=== PATIENT | female | born 1955 | race Hispanic/Latino ===

== ENCOUNTER 2017-09-04 06:42 | Emergency (ER) | payer OTHER ==
[2017-09-04 06:52] VITALS: BMI 29.7
[2017-09-04 06:55] VITALS: RESP 18; TEMP 98.1
--- NOTE | 2017-09-04 07:22 | ED PDOC ---
Arrival/HPI - General Chief Complaint: ENT Problem Time Seen by Provider: 09/04/17 07:10 Historian: Patient - History of Present Illness Narrative History of Present Illness (Text): 09/04/17 07:19 pt p/w + < 1 day onset of left ear aches, + mild sore throat, + post-nasal drip sensation; pt felt mild headaches, no fever/chills/sweats, no coughing/runny nose, no cp/sob/palpitations, no abd pain, no n/v, no numbness/tingling, no urinary/bowel changes, no dizziness, no vision changes, no LOC, no neck pain, no gross bleeding, no fall/trauma/sick contact, no travel; pt denied other complaints; pt is here for further eval. PCP: Dr Tobin Time/Duration: Prior to Arrival Symptom Onset: Sudden Symptom Course: Unchanged Activities at Onset: Rest Context: Home Past Medical History - Provider Review Nursing Documentation Reviewed: Yes - Travel History Have you recently traveled outside [place] w/in the past 3 mons?: No - Past History Past History: Non-Contributing - Infectious Disease Hx of Infectious Diseases: None - Tetanus Immunization Tetanus Immunization: Unknown - Reproductive Menopause: Yes Currently : No - Cardiac Hx Hypertension: Yes - Musculoskeletal/Rheumatological Hx Falls: No - Psychiatric Hx Depression: No Hx Emotional Abuse: No Hx Physical Abuse: No Hx Substance Use: No - Past Surgical History Past Surgical History: Non-Contributing - Suicidal Assessment Feels Threatened In Home Enviroment: No Family/Social History - Physician Review Nursing Documentation Reviewed: Yes Family/Social History: No Known Family HX Smoking Status: no Hx Alcohol Use: No Hx Substance Use: No Hx Substance Use Treatment: No Allergies/Home Meds Allergies/Adverse Reactions: Allergies Penicillins Allergy (Verified 09/04/17 06:55) RASH Home Medications: Home Meds Medication Instructions Recorded Confirmed Amlodipine Besylate/Benazepr 1 cap PO DAILY 03/12/12 03/22/14 [Lotrel 10 mg-20 mg] Atenolol [Atenolol] 25 mg PO QPM 03/22/14 03/22/14 Hydrochlorothiazide [HCTZ] 25 mg PO DAILY 03/22/14 03/22/14 Metformin Hydrochloride [Metformin] 500 mg PO BID 03/22/14 03/22/14 Rosuvastatin Calcium [Crestor] 5 mg PO DAILY 03/22/14 03/22/14 Review of Systems - Review of Systems Constitutional: Normal Eyes: Normal ENT: Sore Throat, Other (left ear pain). absent: Hearing Changes, Rhinorrhea Respiratory: Normal. absent: SOB, Cough Cardiovascular: Normal. absent: Chest Pain, Orthopnea, Syncope Gastrointestinal: Normal. absent: Abdominal Pain, Nausea, Vomiting Genitourinary Female: Normal Musculoskeletal: Normal. absent: Back Pain Skin: Normal Neurological: Normal. absent: Headache, Dizziness Endocrine: Normal Hemo/Lymphatic: Normal Psychiatric: Normal Physical Exam - Physical Exam Narrative Physical Exam (Text): 09/04/17 07:30 General: alert/awake, GCS = 15, oriented x 3, resting in bed, + comfortable, cooperative, interactive; NAD Head: NC/AT EYE: PERRLA, EOMI, sclera anicteric, no nystagmus, no photophobia; wearing eyeglasses; visual field intact b/l Facial: WNL ENT: right TM intact, clear/Non-bulging/non-erythematous; left TM, noted lower quad (6-9 oclock) with bulging, air/fluid level noted; + erythema surrounding the TM, + mild tenderness noted on exam; no gross discharge/bleeding, no FB/ masses/lesions noted Oral: uvula/tongue are midline, no exudate/lesions, no drooling/stridor, no dysphonia; intact dentitions NECK: intact ROM, no midline tenderness, no nuchal rigidity, no meningeal signs ; no step off Chest: CTA b/l, no w/r/r; no tachypenia, no accessory muscle use noted Chest Wall: no focal tenderness, no gross deformities, no crepitus, no lesions/ rashes noted Cardiac: +S1, +S2, no m/r/r, no tachycardia Abdominal: +BS, soft/nd/nt, well nourished patient; no masses/rebound/guarding/ rigidity; no andrew's sign, no mcburney's point tenderness Extremities: intact ROM, strength 5/5 grossly intact in all limbs, neurovasc intact b/l; + ambulatory; reflex +2/2 BACK: no step off, no midline tenderness, NO crepitus, no gross deformities noted; Intact ROM SKIN: cap refill < 1 sec, no ulcerations, no petechiae, no rashes NEURO: CNII-XII WNL, no facial asymmetries, no slurr speech, oriented x 3 NIH stroke scale ~ 0 Psych: normal insight, normal affect; follows command with ease Vital Signs Reviewed: Yes Vital Signs Temp Pulse Resp BP Pulse Ox 09/04/17 06:52 98.1 F 78 18 138/70 97 Temperature: Afebrile Blood Pressure: Normal Pulse: Regular Respiratory Rate: Normal Appearance: Positive for: Well-Appearing, Non-Toxic. No: Ill-Appearing, Unkept , Uncomfortable Pain Distress: None Mental Status: Positive for: Alert and Oriented X 3 - Systems Exam Head: Present: Atraumatic, Normocephalic Medical Decision Making ED Course and Treatment: 09/04/17 07:20 Impression: left ear aches/sore throat? i have consider all the differential diagnosis regarding pt's chief medical complaints/clinical findings, including but are not limited to: left otitis media A/P: left ear aches - supportive care - observe/reevaluation Re-evaluation Time: 07:45 Reassessment Condition: Unchanged - Medication Orders Current Medication Orders: Discontinued Medications Clindamycin HCl (Cleocin) 300 mg PO STAT STA PRN Reason: Protocol Stop: 09/04/17 07:18 Disposition/Present on Arrival - Present on Arrival Any Indicators Present on Arrival: No History of DVT/PE: No History of Uncontrolled Diabetes: No Urinary Catheter: No History of Decub. Ulcer: No History Surgical Site Infection Following: None - Disposition Have Diagnosis and Disposition been Completed?: Yes Diagnosis: Left otitis media, Nasal congestion Disposition: HOME/ ROUTINE Disposition Time: 07:22 Patient Plan: Discharge Patient Problems: Current Active Problems Problem Status Onset Left otitis media Acute Nasal congestion Acute Condition: STABLE Discharge Instructions (ExitCare): Ear Infections (Otitis Media) Print Language: GREENLANDIC Additional Instructions: Make sure to see your doctor in 1-2 days DRINK PLENTY OF FLUIDS take your medications as prescribed DONT SWIM AVOID getting water into your left ear RETURN TO ED IF worse pain, cant breath, persistent vomiting, high fever >101- 102 for hours, altered behavior, slurr speech, facial changes, focal weakness ( arm/leg or both), unable to urinate, heavy/persistent bleeding, passing out, chest pain, or other medical emergencies Prescriptions: Clindamycin [Cleocin] 300 mg PO TID #20 cap Ibuprofen [Motrin] 400 mg PO QID PRN #30 tab PRN Reason: Pain, Mild (1-3) Ofloxacin Otic 0.3% [Floxin 0.3% Otic Soln] 10 drop OS BID 7 Days #1 bottle Referrals: Jaime Tobin MD [Family Provider] - Follow up with primary Pranav Trevizo DO [[facility]] - Follow up with primary [facility] [Outside] - Follow up with primary [facility] [Outside] - Follow up with primary [facility] [Outside] - Follow up with primary Forms: [employer] ([place]an)
[2017-09-04 08:04] VITALS: BP 131/69; PULSE 80; O2SAT 99
== END 2017-09-04 07:52 | disposition home or self-care (01) ==
LOC: ED 06:42
DX: H66.92 Otitis media, unspecified, left ear (principal); R09.81 Nasal congestion

== ENCOUNTER 2017-09-11 00:40 | Emergency (ER) | payer OTHER ==
[2017-09-11 00:41] VITALS: BMI 29.7
[2017-09-11 01:02] VITALS: RESP 18; TEMP 98.2
--- NOTE | 2017-09-11 01:08 | ED PDOC ---
Arrival/HPI - General Chief Complaint: Allergic Reaction Time Seen by Provider: 09/11/17 01:04 Historian: Patient - History of Present Illness Narrative History of Present Illness (Text): 09/11/17 01:07 A 62 year old female, who presents to the emergency department for further evaluation of an itchy rash to the face, chest, and arms. The patient states that she just finished a prescription of Clindamycin antibiotics for which she was being treated for an ear infection. The patient thinks that she may have been allergic to antibiotic, but is not sure. She denies SOB and complains of itchiness to the rash. She also notes that she has a slight cough and is requesting Z-pack antibiotics for her symptoms. she notes that she has taken it in the past with no problem. The patient denies fevers, chills, headache, dizziness, chest pain, shortness of breath, dyspnea on exertion, abdominal pain , nausea, vomiting, diarrhea, back pain, neck pain, urinary/bowel changes, or any other complaint. Time/Duration: Prior to Arrival Symptom Onset: Sudden Symptom Course: Unchanged Activities at Onset: Rest, Light Context: Home Past Medical History - Provider Review Nursing Documentation Reviewed: Yes - Past History Past History: Non-Contributing - Infectious Disease Hx of Infectious Diseases: None - Tetanus Immunization Tetanus Immunization: Unknown - Cardiac Hx Hypertension: Yes - Musculoskeletal/Rheumatological Hx Falls: No - Psychiatric Hx Depression: No Hx Emotional Abuse: No Hx Physical Abuse: No Hx Substance Use: No - Past Surgical History Past Surgical History: Non-Contributing - Anesthesia Hx Anesthesia: No - Suicidal Assessment Feels Threatened In Home Enviroment: No Family/Social History - Physician Review Nursing Documentation Reviewed: Yes Family/Social History: No Known Family HX Smoking Status: Never Smoked Hx Alcohol Use: No Hx Substance Use: No Hx Substance Use Treatment: No Allergies/Home Meds Allergies/Adverse Reactions: Allergies Penicillins Allergy (Verified 09/04/17 06:55) RASH Home Medications: Home Meds Medication Instructions Recorded Confirmed Atenolol [Atenolol] 25 mg PO QPM 03/22/14 09/11/17 Hydrochlorothiazide [HCTZ] 25 mg PO DAILY 03/22/14 09/11/17 Review of Systems - Physician Review All systems were reviewed & negative as marked: Yes - Review of Systems Constitutional: absent: Fevers, Night Sweats Respiratory: Cough. absent: SOB Cardiovascular: absent: Chest Pain, MICHEL Gastrointestinal: absent: Abdominal Pain, Stool Changes, Diarrhea, Nausea, Vomiting Genitourinary Female: absent: Urine Output Changes Musculoskeletal: absent: Back Pain, Neck Pain Skin: Rash Neurological: absent: Headache, Dizziness Physical Exam Vital Signs Reviewed: Yes Vital Signs Temp Pulse Resp BP Pulse Ox 09/11/17 01:25 84 18 117/81 98 09/11/17 01:01 98.2 F 90 18 143/103 H 96 Temperature: Afebrile Blood Pressure: Hypertensive Pulse: Regular Respiratory Rate: Normal Appearance: Positive for: Well-Appearing, Non-Toxic, Comfortable Pain Distress: None Mental Status: Positive for: Alert and Oriented X 3 - Systems Exam Head: Present: Atraumatic, Normocephalic Pupils: Present: PERRL Extroacular Muscles: Present: EOMI Conjunctiva: Present: Normal Mouth: Present: Moist Mucous Membranes Neck: Present: Normal Range of Motion Respiratory/Chest: Present: Clear to Auscultation, Good Air Exchange. No: Respiratory Distress, Accessory Muscle Use Cardiovascular: Present: Regular Rate and Rhythm, Normal S1, S2. No: Murmurs Abdomen: No: Tenderness, Distention, Peritoneal Signs Back: Present: Normal Inspection Upper Extremity: Present: Normal Inspection. No: Cyanosis, Edema Lower Extremity: Present: Normal Inspection. No: Edema Neurological: Present: GCS=15, CN II-XII Intact, Speech Normal Skin: Present: Warm, Dry, Rashes (Diffusely scattered areas of urticaria to the face, arms, and chest.) Psychiatric: Present: Alert, Oriented x 3, Normal Insight, Normal Concentration Medical Decision Making ED Course and Treatment: 09/11/17 01:16 Impression: A 62 year old female presents to the emergency department for further evaluation of a rash to the face, chest, and arms. Plan: -- Benadryl and predniSONE -- Reassess and disposition Progress Notes: - Medication Orders Current Medication Orders: Discontinued Medications Diphenhydramine HCl (Benadryl) 50 mg PO ONCE STA Stop: 09/11/17 01:07 Last Admin: 09/11/17 01:18 Dose: 50 mg Prednisone (Prednisone Tab) 60 mg PO ONCE STA Stop: 09/11/17 01:07 Last Admin: 09/11/17 01:20 Dose: 60 mg - Scribe Statement The provider has reviewed the documentation as recorded by the Ronibe Jennifer Rodarte Provider Ronibe Attestation: All medical record entries made by the Scribe were at my direction and personally dictated by me. I have reviewed the chart and agree that the record accurately reflects my personal performance of the history, physical exam, medical decision making, and the department course for this patient. I have also personally directed, reviewed, and agree with the discharge instructions and disposition. Disposition/Present on Arrival - Present on Arrival Any Indicators Present on Arrival: No History of DVT/PE: No History of Uncontrolled Diabetes: No Urinary Catheter: No History of Decub. Ulcer: No History Surgical Site Infection Following: None - Disposition Have Diagnosis and Disposition been Completed?: Yes Diagnosis: Allergic reaction, Allergic reaction caused by a drug Disposition: HOME/ ROUTINE Disposition Time: 01:08 Patient Plan: Discharge Condition: GOOD Discharge Instructions (ExitCare): Adverse Drug Reactions, Adult (DC) Additional Instructions: Take meds as prescribed/follow up with your doctor this week Referrals: Jaime Tobin MD [Primary Care Provider] - Follow up with primary Forms: [employer] (Ukrainian)
[2017-09-11 02:12] VITALS: BP 117/81; PULSE 84; O2SAT 98
== END 2017-09-11 01:45 | disposition home or self-care (01) ==
LOC: ED 00:40
DX: L27.0 Generalized skin eruption due to drugs and medicaments taken internally (principal); T36.8X5A Adverse effect of other systemic antibiotics, initial encounter; Y92.009 Unspecified place in unspecified non-institutional (private) residence as the place of occurrence of the external cause; I10 Essential (primary) hypertension